=== PATIENT | female | born 1995 | race Caucasian/White ===

== ENCOUNTER → 2021-10-03 18:04 | Observation (INO) ==
[2021-10-03 17:09] LABS: Basophils % 0.3 %; Eosinophils # 0.5 K/mcL (0.0-0.6); Eosinophils % 4.7 %; Hematocrit 31.3 % (35.3-44.9); Hemoglobin 10.1 g/dL (11.5-15.4); Immature Granulocytes % 1.1 % (0-4); Lymphocytes # 1.6 K/mcL (0.6-4.6); Lymphocytes % 14.6 %; Mean Corpuscular HGB Conc 32.3 g/dL (31.6-35.5); Mean Corpuscular Hemoglobin 27.4 pg (28.0-33.3); Mean Corpuscular Volume 84.8 fL (83.0-100.0); Mean Platelet Volume 10.8 fL (9.4-12.4); Monocytes # 0.7 K/mcL (0.0-1.3); Monocytes % 6.6 %; Neutrophils # 7.9 K/mcL (1.6-8.9); Platelet Count 273 K/mcL (140-400); Red Blood Count 3.69 M/mcL (3.82-4.97); Red Cell Distribution Width 14.1 % (11.5-14.5); Segmented Neutrophils % 72.7 %; White Blood Count 10.8 K/mcL (4.3-11.1)
[2021-10-03 17:25] LABS: Protein/Creatinine Ratio,Urine 0.24 mg/mg (0.00-0.20)
[2021-10-03 17:27] LABS: Alanine Aminotransferase 17 Units/L (7-52); Aspartate Amino Transferase 14 Units/L (13-39); BUN/Creatinine Ratio 8 (6-26); Blood Urea Nitrogen 4 mg/dL (6-20); Lactate Dehydrogenase 118 Units/L (140-271); eGFR For African Americans > 60 (> 60); eGFR For Non-African Americans > 60 (> 60)
== END | disposition home or self-care (01) ==
LOC: 1NENULAB
PROVIDERS: ADMIT Advanced Practice Midwife; ATTEND Advanced Practice Midwife

== ENCOUNTER 2021-11-23 03:51 | Inpatient (IN) ==
[2021-11-23] MEDS ORDERED: Famotidine 20 MG/2 ML VIAL IVP PRN (04:50)
[2021-11-23] MEDS ORDERED: *HR* Nalbuphine 10 MG/ML AMPUL IV PRN (04:50)
[2021-11-23] MEDS ORDERED: Metoclopramide 10 MG/2 ML VIAL IVP PRN (04:50)
[2021-11-23] MEDS ORDERED: Ondansetron 4 MG/2 ML VIAL IVP PRN (04:50)
[2021-11-23] MEDS ORDERED: Azithromycin 500 MG in 0.9 % Sodium Chloride 250 ML IVPB PRN (04:50)
[2021-11-23] MEDS ORDERED: Naloxone 0.4 MG/ML INJ IVP PRN (04:50)
[2021-11-23] MEDS ORDERED: miSOPROStoL 25 MCG TABLET PO PRN (04:58)
[2021-11-23] MEDS ORDERED: Oxytocin 30 UNIT/503 ML BAG IVC SCH (05:00)
[2021-11-23 05:38] LABS: Basophils % 0.3 %; Eosinophils # 0.4 K/mcL (0.0-0.6); Eosinophils % 4.4 %; Hematocrit 30.9 % (35.3-44.9); Hemoglobin 10.1 g/dL (11.5-15.4); Immature Granulocytes % 0.6 % (0-4); Lymphocytes # 1.6 K/mcL (0.6-4.6); Mean Corpuscular HGB Conc 32.7 g/dL (31.6-35.5); Mean Corpuscular Hemoglobin 26.9 pg (28.0-33.3); Mean Corpuscular Volume 82.2 fL (83.0-100.0); Mean Platelet Volume 11.1 fL (9.4-12.4); Monocytes # 0.6 K/mcL (0.0-1.3); Monocytes % 6.6 %; Neutrophils # 6.7 K/mcL (1.6-8.9); Platelet Count 234 K/mcL (140-400); Red Blood Count 3.76 M/mcL (3.82-4.97); Red Cell Distribution Width 14.9 % (11.5-14.5); Segmented Neutrophils % 71.1 %; White Blood Count 9.4 K/mcL (4.3-11.1)
[2021-11-23 05:48] LABS: Amphetamine Screen,Urine Negative ng/mL (Cutoff=1000); Barbiturate Screen,Urine Negative ng/mL (Cutoff=200); Benzodiazepines Screen,Urine Negative ng/mL (Cutoff=200); Cannabinoid Screen,Urine Negative ng/mL (Cutoff = 50); Cocaine Screen,Urine Negative ng/mL (Cutoff= 300); Opiate Screen,Urine Negative ng/mL (Cutoff=300); Phencyclidine Screen,Urine Negative ng/mL (Cutoff=25)
[2021-11-23] MEDS ORDERED: EPHEDrine 50 MG/ML VIAL IVP PRN (05:53)
[2021-11-23] MEDS: Ringers Solution, Lactated 1,000 ML IVC SCH ×2 (10:05→16:37)
[2021-11-23 14:55] LABS: Creatinine,Urine 138 mg/dL; Protein/Creatinine Ratio,Urine 0.14 mg/mg (0.00-0.20)
[2021-11-23 16:43] LABS: Alanine Aminotransferase 19 Units/L (7-52); Aspartate Amino Transferase 17 Units/L (13-39); BUN/Creatinine Ratio 13 (6-26); Blood Urea Nitrogen 6 mg/dL (6-20); Lactate Dehydrogenase 118 Units/L (140-271); Uric Acid 4.6 mg/dL (2.3-7.6); eGFR For African Americans > 60 (> 60); eGFR For Non-African Americans > 60 (> 60)
[2021-11-23] MEDS: Epidural Premix (fent/bupiv) 110 ML EP SCH ×2 (16:58→23:13)
[2021-11-24] MEDS ORDERED: OXYTOCIN/RINGERS LACTATE 10 UNIT/166.6 ML BAG IVC ONE ×2 (08:27→11:15)
[2021-11-24] MEDS ORDERED: Lanolin 7 G OINT...G. TP PRN (11:15)
[2021-11-24] MEDS ORDERED: Ondansetron ODT 4 MG TAB.RAPDIS SL PRN (11:15)
[2021-11-24] MEDS ORDERED: Rho Immune Globulin 1,500 UNIT SYRINGE IM PRN (11:15)
[2021-11-24] MEDS ORDERED: Benzocaine/Menthol 56 GM AEROSOL SPRAY TP PRN (11:15)
[2021-11-24] MEDS ORDERED: Oxytocin 30 UNIT/503 ML BAG IVC SCH (11:15)
[2021-11-24] MEDS: Ibuprofen 600 MG TABLET PO SCH ×2 (11:28→20:33)
[2021-11-24] MEDS: Acetaminophen 325 MG TABLET PO SCH ×2 (11:29→20:33)
[2021-11-25] MEDS: Ibuprofen 600 MG TABLET PO SCH (04:07)
[2021-11-25] MEDS: Acetaminophen 325 MG TABLET PO SCH (04:08)
[2021-11-25 06:38] VITALS: BP 111/68; PULSE 86; TEMP 97.9; O2SAT 99
[2021-11-25] MEDS ORDERED: Prenatal Vit/FA 1 EACH TABLET PO SCH (09:00)
== END 2021-11-25 12:24 | disposition home or self-care (01) | DRG 807 ==
LOC: 1NENULAB 03:51 → 1NENUOBS 11-24 10:52
PROVIDERS: ADMIT Registered Nurse; ATTEND Registered Nurse